=== PATIENT | female | born 1940 | race Two or more races ===

== ENCOUNTER 2020-09-24 11:59 | Emergency (ER) | payer MEDICARE, OTHER ==
[~2020-09-24] VITALS: Ht 152.4 cm; Wt 56.7 kg
[2020-09-24] MEDS ORDERED: ASCO500 PO (12:13)
[2020-09-24] MEDS ORDERED: AMIO200T68 PO (12:13)
[2020-09-24] MEDS ORDERED: FERR-89 PO (12:13)
[2020-09-24] MEDS ORDERED: CHOL100044 PO (12:13)
[2020-09-24] MEDS ORDERED: LORA-1000 PO (12:13)
[2020-09-24 12:22] LABS: GLUCOMETER DEV NAME(LOC) ERT.5; GLUCOSE,POINT OF CARE 112 MG/DL (70-110)
[2020-09-24 12:32] LABS: HEMOGLOBIN 8.7 g/dL (12.0-16.0); LYMPHOCYTES # (AUTO) 0.5 K/uL (1.0-4.8); MONOCYTES # (AUTO) 0.2 K/uL (0.1-1.0); NEUTROPHILS # (AUTO) 1.1 K/uL (1.8-7.7); RED CELL DISTRIBUTION WIDTH 16.3 % (11.5-14.5)
[2020-09-24 12:35] LABS: BASOPHILS % (AUTO) 0.8 % (0.0-2.0); HEMATOCRIT 27.7 % (36-46); LYMPHOCYTES % (AUTO) 25.9 % (22.0-44.0); MEAN CORPUSCULAR HEMOGLOBIN 27.6 pg (26.0-34.0); MEAN CORPUSCULAR HGB CONC 31.5 G/dL (31.0-37.0); MEAN CORPUSCULAR VOLUME 88 fL (80-100); MONOCYTES % (AUTO) 8.5 % (2.0-9.0); NEUTROPHILS % (AUTO) 63.8 % (40.0-70.0); PLATELET COUNT (AUTO) 106 K/uL (150-450); RED BLOOD CELL COUNT(AUTO) 3.16 MIL/uL (4.00-5.20)
[2020-09-24 12:41] LABS: CALCIUM, TOTAL 8.6 mg/dL (8.8-10.5); CARBON DIOXIDE 30 mmol/L (22-29); CREATININE 0.55 mg/dL (0.60-1.30); GLUCOSE,RANDOM 95 mg/dL (70-110); UREA NITROGEN, BLOOD 19 mg/dL (7-18)
[2020-09-24 12:44] LABS: ANION GAP 5 mmol/L (8-16); CHLORIDE 102 mmol/L (98-107); GLOMERULAR FILTR. RATE CALC > 60 mL/min (>60); POTASSIUM 4.3 mmol/L (3.5-5.1); SODIUM SERUM 137 mmol/L (136-145)
[2020-09-24 12:47] LABS: ALANINE AMINOTRANSFERASE 16 U/L (12-78); ALKALINE PHOSPHATASE 94 U/L (46-116); ASPARTATE AMINOTRANSFERASE 19 U/L (15-37); BILIRUBIN,TOTAL 0.4 mg/dL (0.1-1.0)
[2020-09-24 12:48] LABS: ALBUMIN 2.6 g/dL (3.4-5.0); LIPASE 93 U/L (73-393); TOTAL PROTEIN, SERUM 5.7 g/dL (6.4-8.2)
[2020-09-24 14:45] VITALS: BP 111/50
[2020-09-24 15:21] LABS: APPEARANCE,URINE CLEAR (CLEAR); BILIRUBIN,URINE NEGATIVE (NEGATIVE); GLUCOSE, URINE (UA) NEGATIVE (NEGATIVE); KETONES,URINE NEGATIVE (NEGATIVE); LEUKOCYTE ESTERASE ,URINE NEGATIVE (NEGATIVE); NITRATE,URINE NEGATIVE (NEGATIVE); OCCULT BLOOD,URINE NEGATIVE (NEGATIVE); PROTEIN,URINE NEGATIVE (NEGATIVE)
[2020-09-24 15:39] LABS: RBC,URINE 0-2 /HPF (0-2)
[2020-09-24 15:40] LABS: BACTERIA,URINE None Seen /HPF (None Seen); SQUAMOUS EPITHELIAL CELL,UR Few /LPF (None Seen); WBC,URINE 0-2 /HPF (0-5)
== END 2020-09-24 17:24 | disposition home or self-care (01) ==
LOC: EMS 12:03
DX: K59.00 Constipation, unspecified (principal); I10 Essential (primary) hypertension; I48.91 Unspecified atrial fibrillation
CPT/HCPCS: 74176; 80053; 81001; 82962; 83690; 84484; 85025; 93005; 99285